=== PATIENT | female | born 1945 | race Caucasian/White ===

== ENCOUNTER 2016-04-12 12:20 | Day surgery (SDC) | payer MEDICARE ==
[~2016-04-12] VITALS: Ht 172.7 cm; Wt 104.0 kg
[~2016-04-12 12:20] MED LIST: ASPI325T32 PO; CALC1TAB99 PO; CHOL2000 PO; GABA-502 PO; HYDR25CA PO; LOSA50TA37 PO; Lactated Ringer's 1,000 ML IV ONE; METF10002 PO; MULT-36 PO; NORE5TAB PO; ROSU5TAB PO
[2016-04-12] MEDS ORDERED: Propofol 10,000 mCg/mL 20 mL Inj ONE ×2 (12:21)
[2016-04-12] MEDS ORDERED: Lidocaine PF 1% 30 mL Inj ONE ×2 (12:21)
[2016-04-12 12:58] VITALS: BP 136/63; PULSE 66; RESP 16; O2SAT 98
--- NOTE | 2016-04-12 13:23 | PCM.HPANE ---
Patient Data Date of Service: Apr 12, 2016 Surgeon Admitting Provider: Attending Provider:Neelam Strauss MD Primary Care Physician:Martina Collins MD Other Provider:Mike Valdes Anesthesia Reason for Visit Screening Ht/WT & BMI Height (Feet): 5 Height (Inches): 8 Weight (Kilograms): 104 Body Mass Index 34.00 Allergies Coded Allergies: Sulfa (Sulfonamide Antibiotics) (Verified Allergy, Severe, HIVES, 04/11/16) atorvastatin (Verified Allergy, Severe, MYALGIAS, 04/11/16) rosuvastatin (Verified Allergy, Unknown, UNKNOWN, 04/11/16) cefaclor (Verified Adverse Reaction, Severe, BODY ACHES & SWEATS, 04/11/16) Past Anesthesia History Anesthesia History: Denies:: Anesthesia Reactions, Malignant Hyperthermia Diabetes History Hx Diabetes?: Yes Type of Diabetes: Type II Glycemic Control: Oral Medication Current Bedside Blood Glucose: 110 MRSA MRSA: No Medications Blood Thinner: Aspirin Last Dose Blood Thinner: Apr 11, 2016 Hypertension Medication: Yes Active Scripts Aspirin 325 Mg Tablet.dr325 Mg PO DAILY #1 BOTTLE Ref 0 After Lovenox is completed, start ASA 325mg PO bid x 5 weeks. Prov:Byron Lee PA-C 06/24/14 Hydroxyzine Pamoate (Vistaril)25 Mg Capsule PO Q4H PRN For Restlessness #50 CAPSULE Prov:Byron Lee PA-C 06/24/14 Reported Medications Norethindrone Acetate 5 Mg Tablet5 Mg PO DAILY 04/11/16 Rosuvastatin Calcium (Crestor)5 Mg Tablet5 Mg PO DAILY 30 Days Ref 0 04/11/16 Cholecalciferol (Vitamin D3) (Vitamin D)2,000 Unit Capsule2,000 Unit PO DAILY 30 Days Ref 0 06/18/14 Multivitamin (Daily Multiple Vitamin)1 Each Tablet1 Each PO DAILY 06/18/14 Metformin 1,000 Mg Tablet1,000 Mg PO BIDWM 30 Days Ref 0 06/18/14 Losartan Potassium 50 Mg Yeaxdq15 Mg PO DAILY 06/18/14 Gabapentin 300 Mg Dkjodpa715 Mg PO HS 30 Days Ref 0 06/18/14 Calcium Carbonate/Vitamin D3 (Calcium 600 + Vit D 200 Tablet)1 Each Tablet1 Each PO BID 06/18/14 Discontinued Reported Medications Ezetimibe (Zetia)10 Mg Vmoinm61 Mg PO DAILY 30 Days Ref 0 06/18/14 Furosemide (Lasix)40 Mg Kcpgui80-38 Mg PO DAILY 30 Days Ref 0 06/18/14 Discontinued Scripts [Hydrocodone/Acetaminophen] ([place] 5-325)1 TAB TABLET No Conflict Check1-2 Tab PO Q3H PRN For Moderate Pain #60 TABLET Prov:Byron Lee PA-C 06/24/14 Enoxaparin (Lovenox)40 Mg/0.4 Ml Eqmwfkk68 Mg SUBQ Q24H #7 SYR Continue Lovenox for 7 days post D/C. Prov:Byron Lee PA-C 06/24/14 History History of ENT Problems?: No HEENT History: Positive for:: Cataracts ( cataract surgery) Hx of Heart Problems?: Yes Cardiovascular History: Positive for:: Chest Pain (ABNL EKG 2003 MPS WNL) Edema (LE EDEMA) Hypertension Hx of Respiratory Problem?: No Respiratory History: Positive for:: Use of C-PAP Machine (AVNI+ SLEEP STUDY 10/2010) Hx Neurologic Problems?: Yes Neurological History: Denies:: CVA Hx of GI Problems?: Yes Gastrointestinal History: Denies:: Diverticulitis (DIVERTICULOSIS) Hx of Problems?: No Female Hx: Denies:: Currently Skin History: Denies:: History Skin Disorders? Pressure Ulcers Hx Musculoskeletal Problems?: Yes Musculoskeletal History: Positive for:: Degenerative Joint Hx of Psycho/Social Problems?: No Psycho Social History: Denies:: Anxiety Hx Depression Hx Surgeries?: Yes (RIGHT HIP) Hx Any Other Health Problems?: Yes Other History: Denies:: Cancer Endocrine Disease Hospitalization Thyroid Disease History Blood Transfusions: Denies:: Blood Transfusions Hx Diabetes: YesBedside Blood Glucose: 110 Hx Alcohol Use: Yes (OCCASIONALLY)Hx Substance Use: No Smoking Status: Never Smoker Have You Smoked inLast 12 mo: No Stop/Bang Treated for Sleep Apnea?: Yes Do You Have a CPAP Machine?: Yes AVNI Risk Assessment: High Risk, =/>3 Yes AVNI Category 4 OutPt Procedure: Yes Risk Assessment Category Category 1A: Patient has history of documented sleep apnea, and HAS NOT received any narcotic, sedative or anesthesia administration during this stay. Category 1B: Patient has history of documented sleep apnea, and HAS received any narcotic , sedative or anesthesia administration during this stay Category 2: Patient has SUSPECTED Obstructive Sleep Apnea, and HAS received any narcotic , sedative or anesthesia administration during this stay. Category 3: Patient has SUSPECTED Obstructive Sleep Apnea and HAS NOT received narcotic, sedative or anesthesia administration during this stay. Category 4: Outpatient in Procedural Areas with known sleep apnea or who screen positive for High Risk via the STOP/BANG questionnaire. Exam Exam Vital Signs Vital Signs Date Time Temp Pulse Resp B/P Pulse Ox O2 Delivery O2 Flow Rate FiO2 04/12/16 12:58 37.1 66 16 136/63 98 Room Air HEENT/AIRWAY: MP 3, Neck Movement (Full), Mouth Opening (Wide) Lungs: Clear to Auscultation, Normal Air Movement Heart: Regular Rate/Rhythm, Normal S1, Normal S2 Meds/Labs/Diagnostics Bedside Blood Glucose: 110 Plan Impression Patient chart reviewed, patient interviewed and anesthestic plan with risks, benefits, and alternatives discussed, and informed consent obtained. NPO Status: 06/20/14 ASA Physical Status: ASA2 Mod Systemic Disease Anesthetic Plan: MAC Bene/Risks/Altern/Consents: Yes HP Complete Prior to Induction: Yes Romeo Carmichael MD Apr 12, 2016 13:23
[2016-04-12] MEDS ORDERED: Lactated Ringer's 1,000 ML IV SCH (13:24)
[2016-04-12] MEDS ORDERED: Ondansetron 2 mg/mL 2 mL Inj IVPUSH PRN (13:25)
[2016-04-12] MEDS ORDERED: MetoCLOpramide 5 mg/mL 2 mL Inj IVPUSH PRN (13:25)
[2016-04-12 14:18] VITALS: BP 129/63; PULSE 64; RESP 14; O2SAT 96
--- NOTE | 2016-04-12 14:20 | PCM.ANEP1 ---
Post Anesthesia Phase 1 PACU Phase 1 Assessment Date of Service: Apr 12, 2016 Vital Signs Vital Signs Date Time Temp Pulse Resp B/P Pulse Ox O2 Delivery O2 Flow Rate FiO2 04/12/16 14:18 36.2 64 14 129/63 96 Room Air 04/12/16 12:58 37.1 66 16 136/63 98 Room Air Anesthetic Administered: MAC Level of Alertness: Sleepy, easy to arouse BRANCH's with Equal Strength: Yes Pain: No Nausea or Vomiting: No Oxygen Delivery: Room Air Lungs: Normal Air Movement Romeo Carmichael MD Apr 12, 2016 14:20
--- NOTE | 2016-04-12 14:24 | PCM.ANEP2 ---
Post Anesthesia Evaluation ASA/CMS Post Anesthesia Date of Service: Apr 12, 2016 VS in Patient's Normal Range?: Yes Resp Stable; Airway Patent?: Yes CV Function & Hydration Stable: Yes Mental Status Recovered?: Yes Pain control Satisfactory?: Yes N/V Control Satisfactory?: Yes Romeo Carmichael MD Apr 12, 2016 14:24
[2016-04-12 14:28] VITALS: BP 129/63; PULSE 68; RESP 16; O2SAT 100
--- NOTE | 2016-04-12 15:00 | ENDO ---
[address] [address] ENDOSCOPY PROCEDURE PATIENT: MJ ROACH : 1945 MR#: [id number] ADMIT: 04/12/2016 JOB ID: [id number] PREPROCEDURE DIAGNOSES: 1. Diverticulosis. 2. History of colon cancer in 1st degree relatives. POSTPROCEDURE DIAGNOSES: 1. Diverticulosis. 2. History of colon cancer in 1st degree relatives. PROCEDURE PERFORMED: Colonoscopy to the cecum. SURGEON: Neelam Strauss MD FINDINGS: Extensive sigmoid diverticulosis. INSTRUMENT: [employer] PCF H 180 AL. ANESTHESIA: MAC PREPARATION QUALITY: Good. HISTORY OF PRESENT ILLNESS: This is a 71-year-old woman whose mother was diagnosed with colon cancer in her 90s. The patient had extensive diverticulosis on previous colonoscopy. DESCRIPTION OF PROCEDURE: The patient was brought to the procedure suite and placed in left lateral decubitus position. Moderate anesthesia was induced by the anesthesiologist. A digital rectal exam was performed and was normal. Perianal external exam was also normal. The colonoscope was advanced to the cecum, which was identified by the coalescence of the tenia and presence of the ileocecal valve. The prep was good. Seventeen minutes withdrawal time was performed and no polyps, masses, or strictures were seen. There was extensive diverticulosis in the sigmoid colon. The endoscope was withdrawn. The patient tolerated the procedure well. COMPLICATIONS: None. ESTIMATED BLOOD LOSS: None. SPECIMENS: None. MTDD
== END 2016-04-12 23:59 | disposition home or self-care (01) ==
LOC: END 12:20
PROVIDERS: ATTEND Surgery
DX: Z12.11 Encounter for screening for malignant neoplasm of colon (principal); Z80.0 Family history of malignant neoplasm of digestive organs; K57.30 Diverticulosis of large intestine without perforation or abscess without bleeding; E11.9 Type 2 diabetes mellitus without complications; Z79.84 Long term (current) use of oral hypoglycemic drugs; I10 Essential (primary) hypertension; G47.33 Obstructive sleep apnea (adult) (pediatric); Z96.641 Presence of right artificial hip joint
CPT/HCPCS: G0105; J7120